=== PATIENT | male | born 1980 | race Hispanic/Latino ===

== ENCOUNTER 2017-05-11 08:26 | Emergency (ER) | payer BC ==
[2017-05-11 09:13] LABS: BASOPHILS % (AUTO) 0.5 % (0.0-5.0); EOSINOPHILS % (AUTO) 0.1 % (0.0-8.0); HEMATOCRIT 40.5 % (42-54); LYMPHOCYTES % (AUTO) 15.8 % (21.0-51.0); MEAN CORPUSCULAR HEMOGLOBIN 28.2 pg (27.0-33.0); MEAN CORPUSCULAR HGB CONC 33.7 g/dL (32.0-36.0); MEAN CORPUSCULAR VOLUME 83.9 fL (79-99); MONOCYTES % (AUTO) 4.1 % (3.0-13.0); NEUTROPHILS % (AUTO) 79.5 % (40.0-77.0); NUCLEATED RED BLOOD CELLS 0.1 % (0.0-0.19); PLATELET COUNT (AUTO) 289 K/uL (130-400); RED BLOOD CELL COUNT(AUTO) 4.83 MIL/uL (4.50-6.20); RED CELL DISTRIBUTION WIDTH 14.3 % (11.0-15.5); WHITE BLOOD COUNT (AUTO) 9.3 K/uL (4.8-10.8)
[2017-05-11] MEDS ORDERED: ONDANSETRON HCL 4 MG/2 ML VIAL ONE (09:19)
[2017-05-11] MEDS ORDERED: SODIUM CHLORIDE 0.9% 1000ML 1,000 ML IV ONE (09:20)
[2017-05-11] MEDS ORDERED: KETOROLAC TROMETHAMINE 30MG/ML ONE (09:20)
[2017-05-11 09:30] LABS: APPEARANCE,URINE Clear (CLEAR); BILIRUBIN,URINE Small (NEGATIVE); COLOR,URINE Dark Yellow (YELLOW); GLUCOSE, URINE (UA) Negative (NEGATIVE); KETONES,URINE Trace mg/dL (NEGATIVE); LEUKOCYTE ESTERASE ,URINE Negative (NEGATIVE); NITRATE,URINE Negative (NEGATIVE); OCCULT BLOOD,URINE Small (NEGATIVE); PH,URINE 5.5 (5.0-8.0); PROTEIN,URINE POS 1+ (NEGATIVE)
[2017-05-11 10:08] LABS: ALBUMIN 3.8 g/dL (3.5-5.0); BILIRUBIN,TOTAL 0.5 mg/dL (0.2-1.0); CREATININE 0.9 mg/dL (0.5-1.5); POTASSIUM 3.5 mmol/L (3.5-5.1); TOTAL PROTEIN, SERUM 7.5 g/dL (6.0-8.3)
[2017-05-11 10:28] LABS: BACTERIA,URINE Few /HPF (None Seen); SQUAMOUS EPITHELIAL CELL,UR 0-2 /LPF (0-2)
[2017-05-11] MEDS ORDERED: HYOSCYAMINE SULFATE 0.125 MG TAB.SUBL SL ONE (10:51)
== END 2017-05-11 11:26 | disposition home or self-care (01) ==
LOC: EDH 08:26
DX: R10.10 Upper abdominal pain, unspecified (principal); R11.2 Nausea with vomiting, unspecified; R19.7 Diarrhea, unspecified; R51 Headache; R30.0 Dysuria; M54.9 Dorsalgia, unspecified; R05 Cough
CPT/HCPCS: 36415; 74176; 80053; 81001; 82150; 83690; 85025; 87804 ×2; 96361; 96374; 96375; 99285; J1885; J2405; J7030

== ENCOUNTER 2019-12-28 21:14 | Emergency (ER) | payer BC, OTHER ==
[2019-12-28 22:02] LABS: BASOPHILS % (AUTO) 0.3 % (0.0-5.0); EOSINOPHILS % (AUTO) 0.1 % (0.0-8.0); HEMATOCRIT 41.7 % (42-54); LYMPHOCYTES % (AUTO) 17.4 % (21.0-51.0); MEAN CORPUSCULAR HEMOGLOBIN 28.7 pg (27.0-33.0); MEAN CORPUSCULAR VOLUME 81.9 fL (79-99); MONOCYTES % (AUTO) 5.4 % (3.0-13.0); NEUTROPHILS % (AUTO) 76.6 % (40.0-77.0); PLATELET COUNT (AUTO) 299 K/uL (130-400); RED BLOOD CELL COUNT(AUTO) 5.09 MIL/uL (4.50-6.20); RED CELL DISTRIBUTION WIDTH 13.8 % (11.0-15.5); WHITE BLOOD COUNT (AUTO) 8.7 K/uL (4.8-10.8)
[2019-12-28] MEDS ORDERED: KETOROLAC TROMETHAMINE 30MG/ML ONE (22:08)
[2019-12-28] MEDS ORDERED: ONDANSETRON HCL 4 MG/2 ML VIAL ONE (22:08)
[2019-12-28 22:18] LABS: ALBUMIN 4.7 g/dL (3.5-5.0); CREATININE 1.1 mg/dL (0.5-1.5); TOTAL PROTEIN, SERUM 8.7 g/dL (6.0-8.3)
[2019-12-28 22:19] LABS: POTASSIUM 2.4 mmol/L (3.5-5.1)
[2019-12-28] MEDS ORDERED: POTASSIUM BICARB/CIT AC 25 MEQ TABLET.EFF ONE (23:04)
== END 2019-12-29 00:24 | disposition home or self-care (01) ==
LOC: EDH 21:14
DX: K52.9 Noninfective gastroenteritis and colitis, unspecified (principal); E87.6 Hypokalemia; Z20.828 Contact with and (suspected) exposure to other viral communicable diseases; F32.9 Major depressive disorder, single episode, unspecified
CPT/HCPCS: 36415; 80053; 83690; 83735; 85025; 87426; 93005; 96361; 96374; 96375; 99284; J1885; J2405; U0003

== ENCOUNTER 2020-12-08 09:33 | Emergency (ER) | payer OTHER ==
[2020-12-08 09:37] VITALS: BP 140/62
[2020-12-09] MEDS ORDERED: ONDA4TAB4 PO (02:12)
== END 2020-12-08 11:57 | disposition left against medical advice (07) ==
LOC: EDH 09:33
DX: R07.89 Other chest pain (principal); M54.5 Low back pain; Z53.21 Procedure and treatment not carried out due to patient leaving prior to being seen by health care provider
CPT/HCPCS: 93005

== ENCOUNTER 2020-12-08 19:56 | Emergency (ER) | payer OTHER ==
[~2020-12-08] VITALS: Ht 167.6 cm; Wt 77.1 kg
[2020-12-08 20:29] LABS: BASOPHILS % (AUTO) 0.2 % (0.0-5.0); EOSINOPHILS % (AUTO) 0.1 % (0.0-8.0); HEMATOCRIT 43.2 % (42-54); LYMPHOCYTES % (AUTO) 14.7 % (21.0-51.0); MEAN CORPUSCULAR HEMOGLOBIN 27.7 pg (27.0-33.0); MEAN CORPUSCULAR HGB CONC 34.3 g/dL (32.0-36.0); MEAN CORPUSCULAR VOLUME 80.7 fL (79-99); MONOCYTES % (AUTO) 5.3 % (3.0-13.0); NEUTROPHILS % (AUTO) 79.4 % (40.0-77.0); PLATELET COUNT (AUTO) 314 K/uL (130-400); RED BLOOD CELL COUNT(AUTO) 5.35 MIL/uL (4.50-6.20); RED CELL DISTRIBUTION WIDTH 13.4 % (11.0-15.5); WHITE BLOOD COUNT (AUTO) 9.5 K/uL (4.8-10.8)
[2020-12-08 20:46] LABS: ALBUMIN 4.6 g/dL (3.5-5.0); BILIRUBIN,TOTAL 0.9 mg/dL (0.2-1.0); CREATININE 1.2 mg/dL (0.5-1.5); TOTAL PROTEIN, SERUM 8.5 g/dL (6.0-8.3)
[2020-12-08 20:47] LABS: POTASSIUM 2.3 mmol/L (3.5-5.1)
[2020-12-08 20:55] VITALS: BP 161/87
[2020-12-08] MEDS ORDERED: KCL 20 MEQ ERTAB PO ONE (21:05)
[2020-12-08] MEDS ORDERED: LACTATED RINGERS 1000ML 1,000 ML IV ONE (21:05)
[2020-12-08] MEDS ORDERED: POTASSIUM CHLORIDE 10MEQ SR TAB PO STA (21:51)
[2020-12-08 21:55] VITALS: BP 132/65
[2020-12-08] MEDS ORDERED: LACTATED RINGERS 1000ML 1,500 ML IV ONE (22:00)
[2020-12-08] MEDS ORDERED: PANTOPRAZOLE 40 MG/VIAL IVP SCH (22:00)
[2020-12-08] MEDS ORDERED: MAG/ALUM/SIMETH 30 ML UDCUP PO ONE (22:00)
[2020-12-08 22:28] LABS: CRP QUANTITATIVE < 2.00 mg/L (0.00-9.0)
[2020-12-08 22:50] VITALS: BP 146/80
[2020-12-08] MEDS: MAGNESIUM 2GM PREMIX 50ML 50 ML IV SCH ×2 (23:14→23:55)
[2020-12-08 23:45] VITALS: BP 122/64
[2020-12-09] MEDS ORDERED: MORPHINE 4 MG SYG ONE (00:25)
[2020-12-09] MEDS ORDERED: MORPHINE 4 MG SYG IV ONE (00:30)
[2020-12-09 00:45] VITALS: BP 117/73
[2020-12-09] MEDS ORDERED: IOHEXOL 350 MG/ML 100ML INFUS..BTL IV ONE (01:02)
[2020-12-09] MEDS ORDERED: ONDA4TAB4 PO (02:12)
[2020-12-09 02:16] VITALS: BP 128/80
[2020-12-09 02:20] VITALS: BP 115/62
== END 2020-12-09 02:24 | disposition home or self-care (01) ==
LOC: EDH 19:56
DX: A08.4 Viral intestinal infection, unspecified (principal); E87.6 Hypokalemia; E83.42 Hypomagnesemia; E86.0 Dehydration; Z20.822 Contact with and (suspected) exposure to COVID-19; K76.0 Fatty (change of) liver, not elsewhere classified; F17.200 Nicotine dependence, unspecified, uncomplicated; Z79.899 Other long term (current) drug therapy
CPT/HCPCS: 36415; 71045; 74177; 80053; 83735; 85025; 86140; 86677; 87635 ×2; 87804 ×2; 93005; 96361; 96365; 96366; 96375 ×2; 99285; C9113; C9803; J2270; J3475; J7120; Q9967

== ENCOUNTER 2021-10-20 08:15 | Emergency (ER) | payer OTHER ==
[~2021-10-20] VITALS: Ht 170.2 cm; Wt 63.5 kg
[~2021-10-20 08:15] MED LIST: ONDA4TAB4 PO
[2021-10-20 08:48] LABS: APPEARANCE,URINE Clear (CLEAR); BILIRUBIN,URINE Small (NEGATIVE); COLOR,URINE Dark Yellow (YELLOW); GLUCOSE, URINE (UA) Negative (NEGATIVE); KETONES,URINE Trace mg/dL (NEGATIVE); LEUKOCYTE ESTERASE ,URINE Trace (NEGATIVE); NITRATE,URINE Negative (NEGATIVE); OCCULT BLOOD,URINE Negative (NEGATIVE); PH,URINE 6.5 (5.0-8.0); PROTEIN,URINE POS 2+ mg/dL (NEGATIVE)
[2021-10-20 08:53] LABS: AMPHET/METH SCREEN,URINE NEGATIVE (NEGATIVE); BARBITURATE SCREEN, URINE NEGATIVE (NEGATIVE); BENZODIAZEPINES SCREEN,URINE NEGATIVE (NEGATIVE); CANNABINOID SCREEN,URINE POSITIVE (NEGATIVE); COCAINE SCREEN,URINE NEGATIVE (NEGATIVE); OPIATE SCREEN,URINE POSITIVE (NEGATIVE); PHENCYCLIDINE SCREEN,URINE NEGATIVE (NEGATIVE)
[2021-10-20] MEDS ORDERED: ONDANSETRON 4MG INJ ONE (08:54)
[2021-10-20] MEDS ORDERED: MORPHINE 4 MG SYG ONE (08:54)
[2021-10-20 08:55] LABS: BACTERIA,URINE Rare /HPF (None Seen); RBC,URINE 0-1 /HPF (0-1); SQUAMOUS EPITHELIAL CELL,UR Rare /HPF (0-2)
[2021-10-20 08:57] LABS: BASOPHILS % (AUTO) 0.2 % (0.0-5.0); EOSINOPHILS % (AUTO) 0.1 % (0.0-8.0); HEMATOCRIT 45.1 % (42-54); LYMPHOCYTES % (AUTO) 17.6 % (21.0-51.0); MEAN CORPUSCULAR HEMOGLOBIN 27.9 pg (27.0-33.0); MEAN CORPUSCULAR HGB CONC 34.4 g/dL (32.0-36.0); MEAN CORPUSCULAR VOLUME 81.3 fL (79-99); MONOCYTES % (AUTO) 6.7 % (3.0-13.0); NEUTROPHILS % (AUTO) 75.1 % (40.0-77.0); PLATELET COUNT (AUTO) 315 K/uL (130-400); RED BLOOD CELL COUNT(AUTO) 5.55 MIL/uL (4.50-6.20); RED CELL DISTRIBUTION WIDTH 13.6 % (11.0-15.5); WHITE BLOOD COUNT (AUTO) 8.7 K/uL (4.8-10.8)
[2021-10-20 09:06] LABS: ALBUMIN 4.6 g/dL (3.5-5.0); CARBON DIOXIDE 30 mmol/L (21-32); CHLORIDE 94 mmol/L (101-111); CREATININE 1.1 mg/dL (0.5-1.5); GLOMERULAR FILTR. RATE CALC 79 mL/min (>60); GLUCOSE,RANDOM 132 mg/dL (70-105); SODIUM SERUM 135 mmol/L (136-145); UREA NITROGEN, BLOOD 17 mg/dL (7-18)
[2021-10-20 09:10] LABS: POTASSIUM 2.3 mmol/L (3.5-5.1)
[2021-10-20 09:11] LABS: ALANINE AMINOTRANSFERASE 34 U/L (12-78); ASPARTATE AMINOTRANSFERASE 20 U/L (10-37); BILIRUBIN,TOTAL 0.7 mg/dL (0.2-1.0); CREATINE KINASE, TOTAL 103 U/L (21-232)
[2021-10-20 09:13] LABS: LIPASE < 50 U/L (114-286)
[2021-10-20] MEDS ORDERED: POTASSIUM CHLORIDE 20MEQ/100ML 100 ML IV ONE (09:27)
[2021-10-20] MEDS ORDERED: 0.9%NACL 1000ML 1,000 ML IV SCH (09:30)
[2021-10-20] MEDS ORDERED: MORPHINE 4 MG SYG IVP ONE (09:30)
[2021-10-20] MEDS ORDERED: MAGNESIUM 2GM PREMIX 50ML 50 ML IV ONE (09:30)
[2021-10-20] MEDS ORDERED: ONDANSETRON 4MG INJ IVP ONE (09:30)
[2021-10-20] MEDS ORDERED: POTASSIUM CHLORIDE 20 MEQ/100 ML BAG IV ONE (09:30)
[2021-10-20] MEDS ORDERED: KETOROLAC 30MG VIAL (30MG/ML) ONE (13:44)
[2021-10-20] MEDS ORDERED: KETOROLAC 30MG VIAL (30MG/ML) IVP ONE (14:00)
[2021-10-20 15:05] LABS: MAGNESIUM 2.3 mg/dL (1.80-2.40)
[2021-10-20 15:19] LABS: POTASSIUM 2.9 mmol/L (3.5-5.1)
[2021-10-20] MEDS ORDERED: DIPH1TAB PO ×2 (15:31→15:33)
[2021-10-20] MEDS ORDERED: ONDA4TAB10 PO (15:31)
[2021-10-20 15:50] VITALS: BP 132/72
[2021-10-20] MEDS ORDERED: KCL 20 MEQ ERTAB PO ONE (16:00)
== END 2021-10-20 16:04 | disposition home or self-care (01) ==
LOC: EDH 08:15
DX: A08.4 Viral intestinal infection, unspecified (principal); E87.6 Hypokalemia; E83.42 Hypomagnesemia; E86.0 Dehydration; Z20.822 Contact with and (suspected) exposure to COVID-19; F17.200 Nicotine dependence, unspecified, uncomplicated; Z98.890 Other specified postprocedural states
CPT/HCPCS: 36415; 80053; 80305; 81001; 82550; 83690; 83735 ×2; 84132; 84484; 85025; 87635; 87804 ×2; 96365; 96366; 96368; 96375; 99285; C9803; J1885; J2270; J2405; J3475; J3480; J7030

== ENCOUNTER 2024-12-10 14:54 | Emergency (ER) | payer SELFPAY ==
[~2024-12-10] VITALS: Ht 170.2 cm; Wt 74.8 kg
[~2024-12-10 14:54] MED LIST changes: +DIPH1TAB PO; +ONDA-243 PO
--- NOTE | 2024-12-10 15:25 | ERN ---
ED Note History of Present Illness Stated Complaint: ABD PAIN Chief Complaint: Abdominal Pain Time Seen by MD: 15:05 Time Seen by Midlevel: 15:06 Dictation: 44-year-old male who presents to the emergency department due to report of having persistent chills, nausea, vomiting diarrhea that began 2 days ago her he states that he believes that this might be attributed to having had a near fainting episode 2 days ago. Patient states that he was doing some work cutting some trees and did not take a rest after having been outside in the heat for an extended period of time. Currently, he denies having any fever associated with this. The patient also states that he has not had contact with anybody with similar symptoms. Upon initial evaluation, the patient presents mildly uncomfortable looking. Allergies: Coded Allergies: No Known Drug Allergies (Unverified Allergy, Unknown, 11/17/16) Emergency Care RESIDENTIAL COUNSELOR: None Home Meds Active Scripts Diphenoxylate HCl/Atropine (Lomotil Tablet) 1 Each Tablet, 2 TAB PO Q12H PRN for DIARRHEA for 5 Days, #10 TAB 0 Refills Prov:MERLIN VILLANUEVA MD 10/20/21 Ondansetron (Ondansetron Odt) 4 Mg Tab.rapdis, 4 MG PO TID PRN for NAUSEA, #15 TAB 0 Refills Prov:MERLIN VILLANUEVA MD 10/20/21 Ondansetron HCl (Zofran) 4 Mg Tablet, 4 MG PO Q8H PRN for NAUSEA/VOMITING, #15 TAB 1 Refill Prov:CESAR DAVE MD 12/09/20 Past Medical History Past Medical History: No Pertinent History 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 Surgical History: Other Surgical History Other: EXPLORATORY ABD SX Social History: Smokers RN Note Reviewed/Agreed w/PFSH: Yes Review of System Dictation Constitutional: Chills Abdomen/GI: Nausea, vomiting, diarrhea Initial Vital Sign VS Vital Signs Date Time Temp Pulse Resp B/P (MAP) Pulse Ox O2 Delivery O2 Flow Rate FiO2 12/10/24 14:56 98.1 84 18 124/89 97 Room Air 0 Physical Exam Dictation General: awake, alert, NAD Head/Face: Normocephalic, atraumatic Eyes: PERRL, EOMI ENT: Oral mucosa dry Neck: Trachea midline, supple Cardiovascular: RRR, no edema Respiratory: Symmetrical, non-labored Abdomen: Soft, non-tender, non-distended, no guarding. Skin: Warm, dry, good turgor, no rash MS/Extremity: Pulses equal, no cyanosis, neurovascular intact, FROM Neuro: COAx4, GCS 15, steady gait, Psych: Normal behavior, mood, and affect normal Results (Laboratory/Radiology) Laboratory/Radiology Laboratory Tests Test 12/10/24 15:11 12/10/24 15:26 12/10/24 15:27 Urine Color YELLOW (YELLOW) Urine Appearance CLEAR (CLEAR) Urine pH 6.0 (5.0-8.0) Urine Specific [place] OVER (1.001-1.031) Urine Protein 100 mg/dL (NEGATIVE) H Urine Glucose (UA) NEGATIVE mg/dL (NEGATIVE) Urine Ketones 5 mg/dL (NEGATIVE) H Urine Occult Blood NEGATIVE (NEGATIVE) Urine Nitrate NEGATIVE (NEGATIVE) Urine Bilirubin NEGATIVE mg/dL (NEGATIVE) Urine Urobilinogen 0.2 mg/dL (0.2-1.0) Urine Leukocyte Esterase 25 K[place]/uL (NEGATIVE) H Urine RBC 6-10 /HPF (0-1) H Urine WBC 2-5 /HPF (0-1) H Urine Squamous Epithelial Cells RARE /HPF (0-2) Urine Bacteria FEW /HPF (None Seen) White Blood Count 10.5 K/uL (4.8-10.8) Red Blood Count 5.45 MIL/uL (4.50-6.20) Hemoglobin 15.4 g/dL (14.0-18.0) Hematocrit 45.8 % (42-54) Mean Corpuscular Volume 84.0 fL (79-99) Mean Corpuscular Hemoglobin 28.3 pg (27.0-33.0) Mean Corpuscular Hemoglobin Concent 33.6 g/dL (32.0-36.0) Red Cell Distribution Width 13.8 % (11.0-15.5) Platelet Count 325 K/uL (130-400) Mean Platelet Volume 10.3 fL (7.5-10.5) Immature Granulocyte % (Auto) 0.2 % (0-1) Neutrophils (%) (Auto) 78.6 % (40.0-77.0) H Lymphocytes (%) (Auto) 16.4 % (21.0-51.0) L Monocytes (%) (Auto) 4.6 % (3.0-13.0) Eosinophils (%) (Auto) 0.0 % (0.0-8.0) Basophils (%) (Auto) 0.2 % (0.0-5.0) Neutrophils # (Auto) 8.3 K/uL (1.8-7.7) H Lymphocytes # (Auto) 1.7 K/uL (1.0-4.8) Monocytes # (Auto) 0.5 K/uL (0.1-1.0) Eosinophils # (Auto) 0.00 K/uL (0.00-0.70) Basophils # (Auto) 0.02 K/uL (0.00-0.20) Absolute Immature Granulocyte (auto 0.02 K/uL (0-1) Nucleated Red Blood Cells 0.0 % (0.0-0.19) Sodium Level 136 mmol/L (136-145) Potassium Level 4.1 mmol/L (3.5-5.1) Chloride Level 94 mmol/L (101-111) L Carbon Dioxide Level 32 mmol/L (21-32) Blood Urea Nitrogen 18 mg/dL (7-18) Creatinine 1.0 mg/dL (0.5-1.3) Glomerular Filtration Rate Calc 96 mL/min (>90) Random Glucose 142 mg/dL (70-105) H Total Calcium 10.2 mg/dL (8.5-10.1) H Total Bilirubin 0.5 mg/dL (0.2-1.0) Aspartate Amino Transf (AST/SGOT) 29 U/L (10-37) Alanine Aminotransferase (ALT/SGPT) 49 U/L (12-78) Alkaline Phosphatase 179 U/L (50-136) H Total Creatine Kinase 125 U/L (21-232) # Total Protein 9.0 g/dL (6.0-8.3) H Albumin 4.6 g/dL (3.5-5.0) Influenza Type A Antigen Negative For Type A Influenza Type B Antigen Negative For Type B Labs Reviewed?: Yes ED Course ED Course Orders Procedure Category Date Status Time Cbc With Differential LAB 12/10/24 Complete 15:13 Comprehensive LAB 12/10/24 Complete Metabolic Panel 15:13 Urinalysis Profile LAB 12/10/24 Complete 15:13 Influenza Type A & B, LAB 12/10/24 Complete Rapid 15:13 Creatine Kinase, Total LAB 12/10/24 Complete 15:13 Saline Lock Iv CPOE 12/10/24 Transmitted 15:13 0.9%Nacl 1000ml (Ns PHA 12/10/24 Complete 1000ml) 15:30 Ondansetron 4mg Inj PHA 12/10/24 Complete (Zofran 4mg Inj) 15:30 Ceftriaxone 1g Vial PHA 12/10/24 Complete (Rocephine 1g Inj) 16:00 Acetaminophen 500mg PHA 12/10/24 In Process Tab (Tylenol 500mg T 16:30 Current Medications Medications (Trade) Dose Ordered Sig/Marcella Route PRN Reason Start Time Stop Time Status Last Admin Dose Admin Acetaminophen (TYLenol 500MG TAB) 1,000 mg ONCE ONCE PO 12/10/24 16:30 12/10/24 16:31 12/10/24 16:09 Ceftriaxone Sodium (ROCEphine 1G INJ) 1 gm ONCE ONCE IVPB 12/10/24 16:00 12/10/24 16:01 DC 12/10/24 15:52 Ondansetron HCl (zoFRAN 4MG INJ) 4 mg ONCE ONCE IVP 12/10/24 15:30 12/10/24 15:31 DC 12/10/24 15:37 Sodium Chloride 1,000 ml @ 0 mls/hr ONCE ONCE IV 12/10/24 15:30 12/10/24 15:31 DC 12/10/24 15:37 Vital Signs Date Time Temp Pulse Resp B/P (MAP) Pulse Ox O2 Delivery O2 Flow Rate FiO2 12/10/24 14:56 98.1 84 18 124/89 97 Room Air 0 Medical Decision Making MDM MDM: Differential diagnosis: Acute gastroenteritis, viral illness, acute dehydration, electrolyte imbalance. Rationale: Tests considered and ordered secondary to shared decision making include: Previous outside records reviewed: Old ER visits. Risk of complication and/or morbidity or mortality of patient management: None Medications-Per medication reconciliation Need for hospitalization: Patient does not meet criteria for hospitalization. Need for emergency major/minor surgery: No There are no social concerns with this patient. Prescription drug management Prescriptions will include symptomatic care Patient's prior external medical records from other ER visits were reviewed by me as indicated. Prior testing and results from previous visits were reviewed. Prior tests were taken into account with medical decision making and resource utilization, independent historian/historians were used to obtain complete medical history. I independently interpreted the test that were performed, results were reviewed by me and considered findings on radiology if ordered. Medical management and examination interpretation discussions were had by me with other qualified healthcare professionals as indicated for the patient's care. DX & DISP Disposition: Discharge Departure Impression: Primary Impression: Acute gastroenteritis Additional Impressions: Acute UTI, Acute dehydration Condition: Stable Scripts Ondansetron (Ondansetron Odt) 4 Mg Tab.rapdis 4 MG PO TIDP PRN for nausea, #16 TAB 0 Refills Prov: HEENA YIN 12/10/24 Cephalexin Monohydrate (Keflex) 500 Mg Cap 500 MG PO BID for 7 Days, #14 CAP Prov: HEENA YIN 12/10/24 Referrals: SELF,REFERRAL (PCP) Time of Disposition: 16:15 HEENA YIN Dec 10, 2024 15:25
[2024-12-10 15:34] LABS: APPEARANCE,URINE CLEAR (CLEAR); GLUCOSE, URINE (UA) NEGATIVE (NEGATIVE); LEUKOCYTE ESTERASE ,URINE 25 Leu/uL (NEGATIVE); NITRATE,URINE NEGATIVE (NEGATIVE); OCCULT BLOOD,URINE NEGATIVE (NEGATIVE)
[2024-12-10 15:35] LABS: ADD UA MICROSCOPIC YES
[2024-12-10 15:36] LABS: SQUAMOUS EPITHELIAL CELL,UR RARE /HPF (0-2)
[2024-12-10 15:37] LABS: IMMATURE GRANULOCYTE ABSOLUTE 0.02 K/uL (0-1); NUCLEATED RED BLOOD CELLS 0.0 % (0.0-0.19); PLATELET COUNT (AUTO) 325 K/uL (130-400); RED BLOOD CELL COUNT(AUTO) 5.45 MIL/uL (4.50-6.20); RED CELL DISTRIBUTION WIDTH 13.8 % (11.0-15.5); WHITE BLOOD COUNT (AUTO) 10.5 K/uL (4.8-10.8)
[2024-12-10] MEDS: 0.9%NACL 1000ML 1,000 ML IV ONE (15:37)
[2024-12-10 15:45] LABS: CREATININE 1.0 mg/dL (0.5-1.3); GLOMERULAR FILTR. RATE CALC 96.0 mL/min (>90); GLUCOSE,RANDOM 142.0 mg/dL (70-105); SODIUM SERUM 136.0 mmol/L (136-145); UREA NITROGEN, BLOOD 18.0 mg/dL (7-18)
[2024-12-10 15:50] LABS: ASPARTATE AMINOTRANSFERASE 29.0 U/L (10-37); CREATINE KINASE, TOTAL 125.0 U/L (21-232); TOTAL PROTEIN, SERUM 9.0 g/dL (6.0-8.3)
[2024-12-10 15:51] LABS: INFLUENZA TYPE A Negative For Type A (NEGATIVE); INFLUENZA TYPE B Negative For Type B (NEGATIVE)
[2024-12-10] MEDS ORDERED: CEPH500B PO (16:15)
[2024-12-10] MEDS ORDERED: ONDA-243 PO (16:15)
[2024-12-10 16:51] VITALS: BP 128/87; PULSE 81; RESP 18; TEMP 97.9; O2SAT 99
== END 2024-12-10 16:52 | disposition home or self-care (01) ==
LOC: EDH 14:54
DX: K52.9 Noninfective gastroenteritis and colitis, unspecified (principal); N39.0 Urinary tract infection, site not specified; E86.0 Dehydration; F17.200 Nicotine dependence, unspecified, uncomplicated; Z79.899 Other long term (current) drug therapy; Z98.890 Other specified postprocedural states
CPT/HCPCS: 99284; 96365; 96375; 82550; 80053; 85025; 87804 ×2; 81001; 36415; J7030; J0696; J2405; 96374